=== PATIENT | male | born 1995 | race Caucasian/White ===

== ENCOUNTER 2018-12-01 18:25 | Emergency (ER) | payer OTHER ==
[2018-12-01] MEDS: LIDOCAINE 1%/EPI 30 ML INJ INJ (19:04)
== END 2018-12-01 20:58 | disposition home or self-care (01) ==
LOC: E/R 20:58
DX: S42.034A Nondisplaced fracture of lateral end of right clavicle, initial encounter for closed fracture (principal); S01.01XA Laceration without foreign body of scalp, initial encounter; S42.134A Nondisplaced fracture of coracoid process, right shoulder, initial encounter for closed fracture; W11.XXXA Fall on and from ladder, initial encounter; Y92.9 Unspecified place or not applicable
CPT/HCPCS: 12002; 73030-RT; 99283-25